=== PATIENT | female | born 1965 | race Caucasian/White ===

== ENCOUNTER → 2023-09-29 10:26 | Outpatient (REF) | payer MEDICARE, OTHER, BC, SELFPAY | LOC: RCS 10:26 | PROVIDERS: ATTENDING PHYSICIAN Internal Medicine | DX: C50.911 Malignant neoplasm of unspecified site of right female breast (principal) | CPT/HCPCS: 93005; 93306; 93356 ==

== ENCOUNTER → 2023-10-04 07:53 | Day surgery (SDC) | payer MEDICARE, OTHER, BC, SELFPAY ==
[2023-10-04 08:42] VITALS: BMI 31.3
== END ==
LOC: CATH 07:53
PROVIDERS: ATTENDING PHYSICIAN Internal Medicine Cardiovascular Disease; FAMILY PHYSICIAN Internal Medicine
DX: I08.1 Rheumatic disorders of both mitral and tricuspid valves (principal); E78.5 Hyperlipidemia, unspecified; Z85.3 Personal history of malignant neoplasm of breast; Z82.49 Family history of ischemic heart disease and other diseases of the circulatory system
CPT/HCPCS: 93312; 93320; 93325; 93005

== ENCOUNTER → 2023-10-11 09:56 | Outpatient (REF) | payer MEDICARE, OTHER, BC, SELFPAY | LOC: RAD 09:56 | PROVIDERS: ATTENDING PHYSICIAN Internal Medicine Cardiovascular Disease; FAMILY PHYSICIAN Internal Medicine | DX: I51.89 Other ill-defined heart diseases (principal) | CPT/HCPCS: 75574; Q9967 ==

== ENCOUNTER → 2023-10-14 09:14 | Outpatient (REF) | payer MEDICARE, OTHER, BC, SELFPAY | LOC: HWRAD 09:14 | PROVIDERS: ATTENDING PHYSICIAN Thoracic Surgery (Cardiothoracic Vascular Surgery); FAMILY PHYSICIAN Internal Medicine | DX: I51.89 Other ill-defined heart diseases (principal); D15.1 Benign neoplasm of heart | CPT/HCPCS: 74174; Q9967 ==

== ENCOUNTER 2023-10-19 05:04 | Inpatient (IN) | payer MEDICARE, BC, SELFPAY ==
[2023-10-17 08:37] VITALS: BMI 30.9
[2023-10-17 09:26] LABS: % Basophils 0.7 % (0-2); % Eosinophils 3.6 % (0-6); % Immature Granulocytes 0.2 % (0-0.5); % Lymphocytes 29.3 % (20.5-51.1); % Monocytes 7.4 % (1.7-9.3); % Neutrophils 58.8 % (42.2-75.2); Absolute Eosinophils 0.2 10^3/uL (0-0.7); Absolute Lymphocytes 1.7 10^3/uL (1.2-3.4); Absolute Monocytes 0.4 10^3/uL (0.1-0.6); Absolute Neutrophils 3.4 10^3/uL (1.4-6.5); Hematocrit 38.1 % (37.0-47.0); Hemoglobin 12.7 g/dL (12.0-16.0); Mean Corp Hgb Conc. 33.3 g/dL (33.0-37.0); Mean Corpuscular Hgb 29.2 pg (27.0-31.0); Mean Corpuscular Volume 87.6 fL (81.0-99.0); Mean Platelet Volume 10.9 fL (7.4-10.4); Nucleated Red Blood Cells % 0 %; Platelet Count 307 10^3/uL (130-400); Red Blood Cell Count 4.35 10^6/uL (4.20-5.40); Red Cell Dist. Width 12.7 % (11.5-14.5); White Blood Cell Count 5.8 10^3/uL (4.8-10.8)
[2023-10-17 09:34] LABS: Urine Albumin Negative (Neg - Trace); Urine Bilirubin Negative (Negative); Urine Character Clear (Clear); Urine Color Straw; Urine Glucose Negative (Negative); Urine Ketone Negative (Negative); Urine Leukocyte Negative (Negative); Urine Nitrite Negative (Negative); Urine Occult Blood Negative (Negative); Urine Specific Gravity 1.005 (<1.030); Urine Urobilinogen Negative (Neg - 1+); Urine pH 6.5 (5.0-9.0)
[2023-10-17 09:44] LABS: APTT 29.7 Sec (23.4-35.0); INR 0.99; PT 12.9 Sec (11.4-14.6)
[2023-10-17 09:50] LABS: Glycohemoglobin (HgbA1c) 5.7 % (4.0-5.6)
[2023-10-17 09:53] LABS: ALT (SGPT) 20 U/L (0-35); AST (SGOT) 22 U/L (14-36); Albumin 4.6 g/dl (3.5-5.0); Alkaline Phosphatase 104 U/L (38-126); Blood Urea Nitrogen 12 mg/dl (7-17); Calcium 9.8 mg/dl (8.4-10.2); Carbon Dioxide 25 mmol/L (22-30); Chloride 102 mmol/L (98-107); Direct Bilirubin 0.3 mg/dl (0.0-0.4); Estimated Creatinine Clearance 103 ml/min; Glucose 99 mg/dl (70-99); Sodium 136 mmol/L (135-145); Total Bilirubin 0.3 mg/dl (0.2-1.3); Total Protein 7.1 g/dl (6.3-8.2); eGFR > 60.00
--- NOTE | 2023-10-17 10:30 | CM ---
Met with Asia Elva in [facility] to review discharge plans. She states prior to admission she resides with her daughter in a two story home with one step to enter. She states she has a full flight of steps to get to bedroom/full bathroom. She states
she has a powder room on the first floor. She states prior to admission she was independent with ambulation and adls. She states she has a single point cane at home. She states she does not have a prescription plan. She states her daughter works
from home and will be available to assist in her care if needed. The discharge plan is to return home with her daughter and a home visit by the Cardiothoracic Transitional Care Nurse when medically stable.
We reviewed pre-op and post-op routines. We reviewed the shower instructions. She has the soap, written instructions and the Cardiothoracic Surgery Educational Booklet. We also reviewed restrictions including driving and lifting restrictions. We
also discussed a home visit by the Cardiothoracic Transitional Care Nurse. She is agreeable to home visit. The plan is for Aortic Valve Tumor resection on Sunday, October 15.
[2023-10-19] VITALS (11 sets, daily range): BP systolic 87–185; BP diastolic 53–96; BMI 30.2
[2023-10-19] MEDS: LOPRESSOR 25 MG PO (05:23)
[2023-10-19] MEDS: BACTROBAN 2% OINTMENT 1 APPLIC NASAL ×2 (05:23→20:06)
[2023-10-19] MEDS: PROTONIX 40 MG PO (05:23)
[2023-10-19] MEDS: MAGNESIUM OXIDE 500 MG PO (05:23)
--- NOTE | 2023-10-19 06:14 | W.CVOR.SURPR ---
CVOR Surgeon Immed Pre Op
-
I have examined this patient prior to performance of the scheduled procedure.
The patient's condition is unchanged from the time of the dictated/written History and
Physical and the patient is able to undergo the scheduled procedure.
RA AV Tumor Resection
Given her bilateral TRAM flaps for breast reconstruction, would ideally like to avoid injury to her mammary arteries or pedicle blood supply,
Will proceed with minimally invasively.
She is aware there is a small chance of causing injury to the [place] aortic valve leaflets causing insufficiency, this would necessitate AVR, if this situation she has opted for a mechanical prosthesis.
[2023-10-19 07:41] LABS: ACT+ - POC 98 Seconds (82-134)
[2023-10-19 07:52] LABS: B.E. - POC -2.8 mmol/L; Glucose - POC 147 mg/dl (65-99); HCO3 - POC 22 mmol/L (21-29); Hematocrit - POC 36 % PCV (37-47); Hemodilution- POC No; Hemoglobin Calculated - POC 12.1; Ionized Calcium - POC 1.16 mmol/L (1.12-1.27); O2 Saturation %Calculated-POC 99.9 5 (92-96); PCO2 - POC 37 mmHg (35-45); PO2 - POC 351 mmHg (80-100); Potassium - POC 3.4 mmol/L (3.6-5.0); Sodium - POC 141 mmol/L (135-145); pH - POC 7.38 (7.35-7.45)
[2023-10-19 08:00] LABS: Urine Albumin Negative (Neg - Trace); Urine Bilirubin Negative (Negative); Urine Character Clear (Clear); Urine Color Yellow; Urine Glucose Negative (Negative); Urine Ketone Negative (Negative); Urine Leukocyte Negative (Negative); Urine Nitrite Negative (Negative); Urine Occult Blood Negative (Negative); Urine Urobilinogen Negative (Neg - 1+); Urine pH 6.5 (5.0-9.0)
--- NOTE | 2023-10-19 08:26 | CM ---
Reviewed chart. Ms. Stevenson is in the operating room today. Prior to admission she resides with her daughter in a two story home with one step to enter. She has a full flight of steps to get to bedroom/full bathroom. She has a powder room ion the
first floor. Prior to admission she was independent with ambulation and adls. She has a single point cane at home. She does not have a prescription plan. Her daughter works from home and she will be available to assist in her care if needed.
Medial work-up in progress. The discharge plan is to return home with her daughter and a home visit by the Cardiothoracic Transitional Care Nurse when medically stable.
[2023-10-19 09:19] LABS: ACT+ - POC 690 Seconds (82-134)
[2023-10-19 09:38] LABS: B.E. - POC 0.7 mmol/L; Glucose - POC 160 mg/dl (65-99); HCO3 - POC 26 mmol/L (21-29); Hematocrit - POC 28 % PCV (37-47); Hemodilution- POC Yes; Hemoglobin Calculated - POC 9.4; Ionized Calcium - POC 1.03 mmol/L (1.12-1.27); O2 Saturation %Calculated-POC 99.9 5 (92-96); PCO2 - POC 41 mmHg (35-45); PO2 - POC 350 mmHg (80-100); Potassium - POC 3.7 mmol/L (3.6-5.0); Sodium - POC 140 mmol/L (135-145)
[2023-10-19 09:46] LABS: ACT+ - POC 1000 Seconds (82-134)
[2023-10-19 10:07] LABS: B.E. - POC -0.7 mmol/L; Glucose - POC 184 mg/dl (65-99); HCO3 - POC 24 mmol/L (21-29); Hematocrit - POC 29 % PCV (37-47); Hemodilution- POC Yes; Ionized Calcium - POC 0.99 mmol/L (1.12-1.27); O2 Saturation %Calculated-POC 99.9 5 (92-96); PCO2 - POC 39 mmHg (35-45); PO2 - POC 293 mmHg (80-100); Potassium - POC 4.8 mmol/L (3.6-5.0); Sodium - POC 140 mmol/L (135-145)
[2023-10-19 10:10] LABS: ACT+ - POC 810 Seconds (82-134)
[2023-10-19 10:57] LABS: B.E. - POC -3.6 mmol/L; Glucose - POC 194 mg/dl (65-99); HCO3 - POC 22 mmol/L (21-29); Hematocrit - POC 33 % PCV (37-47); Hemodilution- POC Yes; Hemoglobin Calculated - POC 11.2; Ionized Calcium - POC 1.02 mmol/L (1.12-1.27); O2 Saturation %Calculated-POC 99.6 5 (92-96); PCO2 - POC 42 mmHg (35-45); PO2 - POC 191 mmHg (80-100); Potassium - POC 4.5 mmol/L (3.6-5.0); Sodium - POC 140 mmol/L (135-145); pH - POC 7.33 (7.35-7.45)
[2023-10-19 11:02] LABS: ACT+ - POC 601 Seconds (82-134)
[2023-10-19 11:31] LABS: ACT+ - POC 104 Seconds (82-134)
[2023-10-19 11:35] LABS: B.E. - POC -2.3 mmol/L; Glucose - POC 183 mg/dl (65-99); HCO3 - POC 23 mmol/L (21-29); Hematocrit - POC 31 % PCV (37-47); Hemodilution- POC Yes; Hemoglobin Calculated - POC 10.5; Ionized Calcium - POC 1.17 mmol/L (1.12-1.27); O2 Saturation %Calculated-POC 95.6 5 (92-96); PCO2 - POC 43 mmHg (35-45); PO2 - POC 84 mmHg (80-100); Potassium - POC 3.7 mmol/L (3.6-5.0); Sodium - POC 141 mmol/L (135-145); pH - POC 7.35 (7.35-7.45)
--- NOTE | 2023-10-19 12:03 | W.PN.CT.SURG ---
Addendum entered and electronically signed by Deep Guerrier MD 10/19/23 13:02:
Of note, the mass measured 1cm x 1cm, with multiple fibrils once placed in saline, resembled a typical papillary fibroelastoma.
Original Note:
CT Surgery Operative Note
-
CARDIAC SURGERY OPERATIVE REPORT
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
Postoperative Diagnosis: Same, multiple Lambl bodies
Procedure(s) Performed:
1. Right common femoral artery cutdown
2. Right lateral minithoracotomy
3. Robotic assisted cardiac surgery, resection of aortic valve tumor and multiple Lambl bodies
4. Transesophageal echocardiography
5. Pulmonary adhesiolysis
Date of Surgery: 10/19/23
Comorbidities:
1. Depression
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
3. Bilateral mastectomies with chemotherapy and reconstruction with TRAM flaps
4. Hyperlipidemia
5. Anxiety
Attending Surgeon: Deep Guerrier MD, MS
Assistants: Camilla Cabral PA-C (present and necessary to pharmacy assistant, retraction, suction, exposure, suture management, and wound closure under my direction) & EDUARDO Castellanos
Anesthesiology: Jurgen Espinoza MD and Kat Sanchez CRNA
Scrub and Circulating RNs: June Dupree RN, Iman Berkowitz RN
Print Line Feeder: Pratik Hollis CCP
Anesthesia: GETA with lung isolation intubation
EBL: per perfusion records
Products: None
CPB Time: 123 minutes
Aortic Cross Clamp Time: 80 minutes
Indication(s) for Procedures: This is a 57-year-old female who underwent a routine transthoracic screening echocardiogram following chemotherapy for breast cancer. She was found to have a mobile mass attached to the right coronary cusp that was
consistent with a papillary fibroelastoma. Due to the elevated stroke risk, multidisciplinary team discussion was conducted. Shared decision-making between her outpatient benzene operator, the patient, and myself was to pursue operative intervention
given the elevated stroke risk. She has a history of breast cancer and underwent bilateral mastectomy with reconstruction in the form of bilateral TRAM flaps. Due to her flaps, we opted to pursue middle invasive surgery to minimize disruption of
the pedicles feeding her flaps.
Aortic Valve Description: Normal-appearing leaflets, mass attached to the node of Arantius toward the [id number]-ghus. Right left coronary ostia within normal anatomic positions. There were some fenestrations toward the right none commissure.
There were multiple Lambl bodies attached to the free margin of the noncoronary cusp as well as the ventricular aspect of the body of the leaflet. These were also resected.
Findings: Left ventricular ejection fraction preoperatively was normal at approximate 55% with no regional wall motion abnormalities. Following surgery she was slightly hyperdynamic with an EF of approximately 60 to 65% with no new regional wall
motion abnormalities. After performing the aortotomy using the robot, multiple stay sutures were placed. The mass was identified to be attached to the right coronary cusp. The mass was gently teased away in order to expose the insertion point
which was essentially on the node of Arantius, wraps slightly towards the noncoronary cusp side. Using sharp scissors, this was cut the mass was extracted from the operative field and placed into a specimen cup. Inspection of all leaflets found
multiple Lambl bodies attached to the right coronary cusp as well as the noncoronary cusp. Lambl bodies were on the free margin as well as on the ventricular aspect towards the body of the leaflet. These were also resected with a combination of
blunt stripping as well as sharp scissors. The valve was tested for competency and appeared to be appropriate. The aortotomy was closed in 2 layers using 4-0 Prolene and the heart was de-aired accordingly. Due to her normal ventricular function
and no subvalvular or annular work, I did not place any pacing wires. Upon removal of the cross-clamp there appears to be a good root pressure indicating valve competency. Transesophageal echocardiogram was conducted in order to verify valve
competency. The aortic valve was competent with normal leaflet excursion without the mass present. No inotropes were used, no blood products were given, no pacing was required.
Specimen(s): Aortic valve leaflet tumor, appearance was consistent with a papillary fibroelastoma.
Description of Procedure: The patient was taken to the operating room. Their identity and procedure to be performed were verified and they were positioned supine with the right side bumped up on the operating table. Induction via general anesthesia
with endotracheal intubation was performed and central venous access and arterial monitoring were inserted. A preoperative transesophageal echocardiogram was performed to assess cardiac function and valvular function. The patient was then prepped
and draped from chin to feet in a sterile fashion. A preoperative time-out was performed with all members of the team present. Using ultrasound, the right common femoral vessels were identified and a small 3 cm incision was made above the level of
the bifurcation. Pursestring sutures were placed along the femoral vein and common femoral artery. I then moved towards the chest and identified the fourth intercostal space. A 5 cm incision was made and the chest was entered with the right lung
deflated under single lung ventilation. There was some pulmonary adhesions which were lysed using electrocautery. Full heparinization was given (a total of 40,000 units). Using open Seldinger technique with transesophageal echocardiographic
guidance, the femoral vein was cannulated first with a wire which was verified to be in the SVC. A 25 [place] peripheral venous cannula was then inserted under direct vision in place so the tip of the cannula was in the SVC. Next using a similar
method, the common femoral artery was accessed with a wire verified to be in the abdominal aorta. Serial dilations first using a small and then 14 Latvian dilator was performed followed by insertion of a 15 [place]ian arterial cannula. The cannula was
de-aired and mated wet to wet. The arterial cannula line had an appropriate bounce and correlating pressures with test dosing. The ACT was confirmed to be over 400 and retrograde autologous priming was performed before commencing cardiopulmonary
bypass. The robotic instruments were docked using three 8 mm ports, one through the thoracotomy incision and then one 8 mm port on either side of the thoracotomy. Once the heart was decompressed and beautifully on cardiopulmonary bypass, the lungs
were turned off and the pericardium was opened with electrocautery. 2 pericardial stay sutures were placed 1 inferiorly 1 superiorly in order to create a pericardial table. The aorta was then from the right pulmonary artery using
electrocautery. A pursestring suture was placed on the ascending aorta and antegrade root vent was then inserted and secured. A Esmer clamp was then inserted under direct vision and positioned across the aorta to ensure not to include the left
atrial appendage or pulmonary artery. A total of 1L initial dose of antegrade Del-Nido cardioplegia solution was given and planned for re-dosing every 75 minutes as necessary. There was rapid electro-mechanical arrest of the heart at 200 cc of
cardioplegia. We systemically cooled to 34 degrees centigrade.
Carbon dioxide was used to flood the field via one of the ports at a very low flow. We manually identified the location of the right coronary take off. An aortotomy was made approximately 2cm above the sinotubular junction using robotic scissors.
The location of both left and right coronary vessels were visualized in the root. 2 x 4-0 pledgeted Prolene's were then placed in order to facilitate exposure of the aortic root. Next using scissors, the fibroelastoma was resected from the right
coronary cusp with a combination of blunt and sharp dissection. This was handed off and placed into a specimen cup outside the field. Aortic valve leaflets were then inspected again and found to have multiple Lambl bodies as described above, these
were also resected. The root and left ventricular outflow tract were thoroughly irrigated to remove any debris and the valve was tested for competency. The aortotomy was approximated with 4-0 prolene in two layers. De-airing maneuvers were
performed. The patient was placed in a Trendelenburg position and flows on bypass were lowered. The aortic cross clamp was removed and flows were slowly brought back up. The aortotomy appeared hemostatic. Transesophageal echocardiography revealed
no new aortic valve insufficiency and normal excursion the leaflets without any masses or abnormalities appearing on the leaflets. Once de-airing was satisfactory, the left ventricular vent was removed. After verifying acceptable parameters, we
initiated weaning from cardiopulmonary bypass. Once we were off cardiopulmonary bypass, the femoral cannulas were then clamped, the arterial line was then transected and then placed onto the femoral venous cannula. This was served as our method of
getting back volume. A test dose of protamine was administered and the patient was monitored for any adverse reaction before resuming protamine. Once half of the protamine dose was delivered, pump suckers were turned off. The arterial cannula was
removed and pursestrings were tied down. The aortotomy suture line was inspected and hemostasis was confirmed. Mediastinal hemostasis was obtained. One 24Fr Ady drain was placed within the pericardium across the transverse sinus with some hanging
out in the chest noted drain both cavities. Fascia was approximated with #1 vicryl suture. Additional local analgesia was injected into the intercostal spaces and in the subdermal layer. The subcutaneous, dermis and epidermis were closed in layers
in a running fashion of all incisions. The skin wound was cleansed and dressed.
All instrument, sponge, and needle counts were confirmed to be correct x 2 at the end of the operation. The patient was transferred to the cardiac intensive care unit in critical but stable condition.
I, Dr. Deep Guerrier, was present, scrubbed for, and performed all critical elements of this procedure.
Deep Guerrier MD, MS
Cardiothoracic Surgeon
[facility]
This operative dictation was created using the [employer] dictation system. Please excuse any grammatical, typographical, or 'sound alike' errors
--- NOTE | 2023-10-19 12:23 | W.PN.UPDATE ---
Update Note
Progress Note Update
IV fluids: 2049
U.O.:� 300
UF:� NONE
Blood:� None
Wires:� none
Inotropes:� None
Pressors:� Levophed
Sedatives:� precedex
�
NEURO: sedated on precedex, pupils +4mm B/L
RESP: #8OT @22cm> 14/500/40/5; Lungs clear B/L. 1 mediastinal (8ml) chest tubes to -20cm suction. Sanguineous drainage
CV: RRR +S1, S2, no S3, no�rub, no murmur. Dermabond to right chest wall ) RIJ w/slick cath
ABD: round, soft, no BS
EXT: no edema, +2/4 DP pulses B/L, no femoral bruit, left radial A-line intact
: River with clear yellow urine
�
A/P: POD #0 s/p robotic assisted aortic valve tumor resection
RODY: EF�nml
- wean and extubate
- will start ASA today
- Monitor uop and CT output
- f/u post-op labs
- cards consulted
�
# acute surgical blood loss anemia-expected
- trend CBC
- will start iron
#Depression
- continue Effexor when tolerating PO
�
# Hyperglycemia (A1C 5.7)
- insulin infusion x 24h
�
# Hyperlipidemia
- resume�statin when tolerating PO
[2023-10-19 12:31] LABS: Glucose - Point of Care 163 mg/dl (70-99)
[2023-10-19 12:43] LABS: Hematocrit 31.1 % (37.0-47.0); Hemoglobin 10.5 g/dL (12.0-16.0); Platelet Count 211 10^3/uL (130-400)
[2023-10-19 12:48] LABS: INR 1.35; PT 16.8 Sec (11.4-14.6)
[2023-10-19 12:49] LABS: APTT 25.4 Sec (23.4-35.0); B.E. -2.3 mmol/L; HCO3 24.2 mmol/L (21-28); Ionized Calcium 1.22 mMOL/L (1.15-1.33); O2 Saturation % 99.5 % (94-98); PCO2 48 mmHg (32-35); PO2 144 mmHg (83-108); Potassium 3.7 mMOL/L (3.5-5.1); Sodium 142 mMOL/L (136-145); pH 7.31 (7.35-7.45)
[2023-10-19] MEDS: NEURONTIN PO ×2 (12:52→15:04)
[2023-10-19] MEDS: EFFEXOR XR PO (12:52)
[2023-10-19] MEDS: EFFEXOR PO (12:52)
[2023-10-19] MEDS: NSS 500 IV (12:53)
[2023-10-19 13:02] LABS: Glucose - Point of Care 172 mg/dl (70-99)
[2023-10-19 13:05] LABS: Blood Urea Nitrogen 12 mg/dl (7-17); Estimated Creatinine Clearance 87 ml/min; Glucose 156 mg/dl (70-99); Magnesium 2.8 mg/dl (1.6-2.3)
[2023-10-19] MEDS: TYLENOL PO (13:16)
[2023-10-19] MEDS: ANCEF 10 IV ×2 (13:16)
--- NOTE | 2023-10-19 13:26 | PTCARENOTE ---
Patient received from CVOR s/p AV mass resection. SB via cm, SaO2 98% on ventilator, titrating FiO2 as able. RIJ Cordis, L radial arterial lines present. Mediastinal chest tube placed to -20cm suction, no air leak noted. River catheter to gravity.
All procedural sites stable. Labs drawn, EKG performed, pcxr obtained. Dr. Guerrier to bedside, updated to status. See work list for full assessment, interventions performed, and intravenous infusion rates and titrations.
--- NOTE | 2023-10-19 13:32 | W.PN.CARDCBS ---
Addendum entered and electronically signed by Dwight Choi MD 10/19/23 15:27:
I saw and examined the patient.
The MICROWAVE REMOTE SENSING SCIENTIST or PA's note was reviewed and I agree with the note.
Comment: General: Sedate but arousable
Neck: Supple, no JVD, HJR, carotids +2 B/L, no bruits bilaterally.
Heart: Non displaced PMI, RRR, no murmurs, No S3, S4, no rubs.
Lungs: Scattered rhonchi
Sternal dressings noted
Extremities: No clubbing, cyanosis or edema bilaterally.
Neuro: Sedated but arousable
She seems status post fibroblastoma on aortic valve. She is cardiovascular stable no pressors. She remains intubated and present. Discussed with nursing. Stable cardiology status
Original Note:
Today's Communication / Plan
-
continue post op care
Impression / Plan
-
Primary Painter Bottom: Dr. Mojica
Assessment:
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
History of breast cancer status post chemotherapy, bilateral mastectomy with reconstruction 2015
Hyperlipidemia
Depression/anxiety
Post op anemia
ECHO 09/29/23: EF 50%, GLS 17.4%, mild MR, trace AR, echodensity on aortic valve, mild NH
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
Plan:
-Patient recently diagnosed with aortic valve mass by echo 09/29/2023. Now status post robotic assisted resection of aortic valve tumor and multiple Lambl bodies via right mini thoracotomy 10/19/2023. Appearance of mass felt to be consistent with
papillary fibroblastoma, await pathology
-Remains intubated, sedated
-On levo at 1, wean as able
-Hemoglobin 10.5, follow
-In sinus rhythm/sinus haile on review of telemetry and post op EKG
-Continue postoperative care
-Discussed with nursing
Progress Note - Painter Bottom
Subjective
Date of Service: October 19, 2023
intubated, sedated
Objective
Labs:
10/19/23 12:31
Labs
Hgb 10.5 g/dL (12.0-16.0) L 10/19/23 12:31
Hct 31.1 % (37.0-47.0) L 10/19/23 12:31
Plt Count 211 10^3/uL (130-400) D 10/19/23 12:31
PT 16.8 Sec (11.4-14.6) H 10/19/23 12:31
INR 1.35 10/19/23 12:31
APTT 25.4 Sec (23.4-35.0) 10/19/23 12:31
Sodium 136 mmol/L (135-145) 10/17/23 08:56
Potassium 4.0 mmol/L (3.5-5.1) 10/17/23 08:56
BUN 12 mg/dl (7-17) 10/19/23 12:31
Creatinine 0.7 mg/dL (0.6-1.0) 10/19/23 12:31
Glucose 156 mg/dl (70-99) H 10/19/23 12:31
Vital Signs and I&O:
Vital Signs
Temp Pulse Resp BP Pulse Ox
97.5 F 56 12 173/94 99
10/19/23 13:00 10/19/23 13:06 10/19/23 13:00 10/19/23 05:23 10/19/23 13:15
Vital Signs
Temp Pulse Resp BP Pulse Ox
97.5 F 56 12 173/94 99
10/19/23 13:00 10/19/23 13:06 10/19/23 13:00 10/19/23 05:23 10/19/23 13:15
Intake & Output
10/17/23 10/18/23 10/19/23 10/20/23
07:59 07:59 07:59 07:59
Intake Total 41.3 / 41.3
Output Total 95 / 95
Balance -53.7 / -53.7
Physical Exam
Physical Exam
GEN: No distress, intubated
HEENT: supple, mmm
LUNGS: CTA B/L, no wheezes/rales
CV: Reg, S1/S2, no murmur
ABD: soft, BS+, NT/ND
EXT: No cyanosis, clubbing, edema
NEURO: sedated
SKIN: Warm, pink, dry. No rash. R mini thoracotomy sites c/d/i
--- NOTE | 2023-10-19 13:52 | CON.INTV ---
Consultation
Consultation Request
Date/Time Consultation Requested: 10/18
Date/Time Consultation Performed: 10/18
Reason for Consultation: Critical care
Medical History
-
History of Present Illness:
History obtained from the chart, reviewing outpatient records this patient is currently intubated and sedated. Patient is a 57-year-old female with history of breast cancer, found to have valvular lesion worrisome for papillary fibroelastoma.
Patient underwent CT surgery evaluation, now status post right common femoral artery cutdown, right lateral minithoracotomy, robot-assisted aortic valve tumor resection. Clamp time 80 minutes. Cardiopulmonary bypass time 123 minutes. Patient
required low-dose norepinephrine postprocedure. We are asked to help from critical care standpoint
.
PMH: History of breast cancer with bilateral mastectomy with reconstruction, hypercholesterolemia, depression. History of right and left knee replacement, ganglion cyst removal, lymph node removal, port in the past.
Past Medical History
Past Medical History: None (See above)
Past Surgical History: None (See above)
Social History
Tobacco: Non-smoker
Alcohol: None
Drug: None
Personal: Single
Living: With Family (Lives with daughter)
Employment: Employed (environmental attorney)
Family History
Family History: Other (Father from [place] at age 51. Mother alive with breast cancer. Sister with breast cancer. 1 daughter healthy. 1 brother healthy)
Allergies / Home Medications
Allergies
Allergy/AdvReac Type Severity Reaction Status Date / Time
adhesive tape Allergy Rash Verified 10/14/23 14:10
Penicillins Allergy Rash Verified 10/14/23 14:10
Home Medications
�Medication �Instructions �Recorded �Confirmed �Last Taken �Type
simvastatin 40 mg tablet 40 mg PO DAILY 10/04/23 10/19/23 10/18/23 05:30 History
venlafaxine 37.5 mg tablet 37.5 mg PO DAILY 10/04/23 10/19/23 10/18/23 09:00 History
aspirin 81 mg tablet 81 mg PO DAILY 10/14/23 10/19/23 10/18/23 05:30 History
dextroamphetamine-amphetamine 20 20 mg PO BID 10/14/23 10/19/23 10/18/23 05:30 History
mg tablet (Adderall)
venlafaxine 150 mg tablet,extended 150 mg PO DAILY 10/14/23 10/19/23 10/16/23 09:00 History
release 24 hr
Review of Systems
-
Unable to Obtain full review of systems at this time due to: Patient Intubation
All other systems: Negative unless noted
Vitals / Labs / Diagnostic Testing
Vital Signs
Temp Pulse Resp BP Pulse Ox
97.5 F 56 12 173/94 99
10/19/23 13:00 10/19/23 13:06 10/19/23 13:00 10/19/23 05:23 10/19/23 13:15
Lab Data
10/19/23 12:31
Laboratory Results
10/19/23
12:31
PT 16.8 H
INR 1.35
APTT 25.4
pH 7.31 L
pCO2 48 H
pO2 144 H
HCO3 24.2
O2 Delivery Level Not Reportable
Microbiology
10/17/23 08:56 Nose MRSA Screen - Final
No Methicillin Resistant Staphylococcus aureus isolated.
Diagnostic Testing:
Physical Exam
-
HEENT: Normocephalic and Other (Right IJ, left upper extremity A-line, chest tube)
Cardiovascular: S1/S2, Regular Rhythm, Murmur (n), Rub (n) and Peripheral Edema (n)
Respiratory: Wheeze (n), Rales (n), Rhonchi (n) and Non-Labored Respirations
GI: Soft, Non Distended and Non Tender
Neurology: Other (Lethargic, sedated on ventilator)
Skin: Good Color
General: Comfortable
Assessment
-
57-year-old female with history of breast cancer status postchemotherapy, bilateral mastectomy with reconstruction, underwent echocardiogram with echodensity noted in aortic valve. Further workup suggested papillary fibroelastoma. Patient
underwent removal via robotic right mini thoracotomy, 10/19/2023. We are asked to help from critical care standpoint
S/p Removal of aortic valvular lesion, presumed to be papillary fibroelastoma, 10/19/2023
Robotic assisted resection
Right minithoracotomy
Postoperative anemia
Incomplete right bundle branch block chronic
Condition present prior to admission
History of breast cancer
Status postchemotherapy, bilateral mastectomy with reconstruction 2015
Hyperlipidemia
Family history of breast cancer (sister)
Plan/recommendations
At this time, patient appears to be comfortable, on volume-cycled ventilation. Airway pressures adequate
Chest exam is clear
Chest x-ray unremarkable
EKG with incomplete right bundle branch block
Moving forward
Continue with management per cardiology
Follow blood sugars
Wean off pressors
Wean ventilator per CT surgery protocol
Adequate oxygenation/ventilation
Anticipate extubation later today
Patient on amiodarone therapy, beta-herb therapy
Chest tube output minimal
Follow hemoglobin. Transfuse per CT surgery protocol
Sequential teds in place
Reviewed with critical care nursing
Will follow
TCCT 31 min
[2023-10-19 14:05] LABS: Glucose - Point of Care 141 mg/dl (70-99)
[2023-10-19] MEDS: OFIRMEV 100 IV (14:08)
[2023-10-19] MEDS: KCL 50 IV ×2 (14:08→15:10)
[2023-10-19 14:13] LABS: B.E. -0.3 mmol/L; O2 Saturation % 99.2 % (94-98); PCO2 37 mmHg (32-35); PO2 124 mmHg (83-108); pH 7.42 (7.35-7.45)
[2023-10-19 15:01] LABS: Glucose - Point of Care 99 mg/dl (70-99)
[2023-10-19] MEDS: PACERONE PO (15:04)
[2023-10-19 15:10] LABS: B.E. -0.2 mmol/L; HCO3 23.9 mmol/L (21-28); O2 Saturation % 99.6 % (94-98); PCO2 36 mmHg (32-35); PO2 178 mmHg (83-108); pH 7.43 (7.35-7.45)
--- NOTE | 2023-10-19 15:44 | PTCARENOTE ---
CPAP wean initiated. Patient displayed good TV - ABG obtained. Results conveyed to TRISTEN [place], advised nursing extubate patient. Patient extubated to 6lnc w/out incident, SaO2 @ 98%.
[2023-10-19 16:01] LABS: Glucose - Point of Care 104 mg/dl (70-99)
[2023-10-19 16:42] LABS: Hematocrit 31.2 % (37.0-47.0); Hemoglobin 10.5 g/dL (12.0-16.0); Platelet Count 179 10^3/uL (130-400)
[2023-10-19] MEDS: LOW STRENGTH ASPIRIN 81 MG PO (16:47)
[2023-10-19] MEDS: FLEXERIL 5 MG PO (16:58)
[2023-10-19 17:05] LABS: Glucose - Point of Care 92 mg/dl (70-99)
--- NOTE | 2023-10-19 18:00 | PTCARENOTE ---
Assumed care of pt from juan david RN. Walking rounds completed. Pt AAOx3 and sleepy. No c/o pain at this time. BOYD. Pt SR to sinus haile on the monitor. HR 50-60s. CVP 7-teens. BP 110's-120's/60s. Nitro infusing per protocol. Palpable pulses. No
edema noted. Pt on 3 L NC. POX 100%. Lung sounds diminished at the base. Deep breathing and IS encouraged. Med CTx1 to -20 suction, no airleak/tidaling/crepitus noted, and output appropriate. River catheter intact. Pt voiding yellow urine. Abdomen
soft/nontender. +BS. No c/o nausea. Pt tolerated sips of water and ice chips. All surgical sites stable. Right IJ cordis w/ slick and left radial a-line CDI. All lines leveled/zeroed/flushed. Call bazzi within reach of pt.
[2023-10-19] MEDS: ANCEF 5 IV (18:07)
[2023-10-19 19:11] LABS: Glucose - Point of Care 130 mg/dl (70-99)
[2023-10-19] MEDS: SENOKOT-S 1 TABLET PO (20:06)
[2023-10-19] MEDS: ROXICODONE 5 MG PO (20:11)
[2023-10-19] MEDS: DILAUDID 0.25 MG IV (20:29)
[2023-10-19 21:13] LABS: Glucose - Point of Care 108 mg/dl (70-99)
[2023-10-19] MEDS: PACERONE 200 MG PO (22:12)
[2023-10-19] MEDS: NEURONTIN 200 MG PO (22:12)
[2023-10-19] MEDS: TYLENOL 1000 MG PO (22:12)
--- NOTE | 2023-10-19 22:14 | PTCARENOTE ---
Pt a-line and cuff pressures not lining up. Cuff SBP's 120s and a-line SBP's 140s-150s. Per CTPA - go by cuff pressures.
[2023-10-19 23:10] LABS: Glucose - Point of Care 89 mg/dl (70-99)
[2023-10-20] VITALS (28 sets, daily range): BP systolic 87–151; BP diastolic 50–104; PULSE 71; O2SAT 97–98; BMI 31.2
[2023-10-20] MEDS: DILAUDID 0.25 MG IV (00:03)
--- NOTE | 2023-10-20 00:26 | PTCARENOTE ---
Pt reassessed. Pt SR on monitor. HR 60s. BP stable. A-line and cuff not BP's not matching - per CTPA going by cuff pressure. Pt on 2 L NC. POX 98-100%. CT assessment unchanged from previous. CVP 5-10. Right IJ cordis w/ slick and Left radial a-line
maintained. All lines leveled/zeroed/flushed. All surgical sites stable. Pt c/o pain - see AUG. Glycemic protocol followed. Call bazzi within reach.
[2023-10-20 01:14] LABS: Glucose - Point of Care 101 mg/dl (70-99)
[2023-10-20] MEDS: ROXICODONE 5 MG PO (01:46)
[2023-10-20] MEDS: ANCEF 5 IV ×2 (01:46→10:11)
[2023-10-20 03:30] LABS: Glucose - Point of Care 125 mg/dl (70-99)
[2023-10-20 03:46] LABS: Hematocrit 30.4 % (37.0-47.0); Hemoglobin 10.2 g/dL (12.0-16.0); Mean Corp Hgb Conc. 33.6 g/dL (33.0-37.0); Mean Corpuscular Hgb 29.8 pg (27.0-31.0); Mean Corpuscular Volume 88.9 fL (81.0-99.0); Mean Platelet Volume 10.8 fL (7.4-10.4); Platelet Count 201 10^3/uL (130-400); Red Blood Cell Count 3.42 10^6/uL (4.20-5.40); White Blood Cell Count 17.7 10^3/uL (4.8-10.8)
--- NOTE | 2023-10-20 04:00 | PTCARENOTE ---
Pt reassessed. Pt SR on monitor. HR 70s. BP slightly elevated. Nitro started per CTPA. RA. POX 97%. CT assessment unchanged. [place] and a-line dc'd per order. Call bazzi within reach.
[2023-10-20 04:12] LABS: Blood Urea Nitrogen 13 mg/dl (7-17); Calcium 8.9 mg/dl (8.4-10.2); Carbon Dioxide 24 mmol/L (22-30); Chloride 105 mmol/L (98-107); Estimated Creatinine Clearance 102 ml/min; Glucose 113 mg/dl (70-99); Magnesium 2.5 mg/dl (1.6-2.3); Potassium 4.1 mmol/L (3.5-5.1); Sodium 134 mmol/L (135-145); eGFR > 60.00
[2023-10-20 05:13] LABS: Glucose - Point of Care 92 mg/dl (70-99)
[2023-10-20] MEDS: TYLENOL 1000 MG PO ×3 (05:45→20:40)
[2023-10-20] MEDS: LOPRESSOR 12.5 MG PO ×2 (05:46→20:40)
--- NOTE | 2023-10-20 06:03 | W.PN.CT ---
Addendum entered and electronically signed by KODAK Sterling 10/21/23 14:25:
CDI QUERY RESULT
Na+ 130>hyponatremia
Original Note:
Today's Communication / Plan
-
-pod #1
-no issues overnight
-drips: on insulin. Nitro is off
-CT output: med 70/125 in 12/24 hrs
-gave Lopressor early for HTN
-d/c insulin
-d/c [place]
-d/c a-line
-current meds (ASA, Lipitor, Lopressor, Amio, Protonix, Effexor, Neurontin, Adderall, iv iron)
-encourage IS, OOB
Assessment / Plan
-
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 Guerrier on 10/19/23, pod #1
-LVEF preop was normal at approximate 55% with no regional wma. Following surgery, she was slightly hyperdynamic with an EF of approximately 60 to 65% with no new regional wall motion abnormalities.
- Depression
- Bilateral mastectomies with chemotherapy and reconstruction with TRAM flaps
- Hyperlipidemia
- Anxiety
- Lap BSO
- b/l TKR
- Acute postop blood loss anemia - stable without transfusion
- Acute postop atelectasis
Discussed patient care with: Nursing and Care Team
Subjective
-
Date of Service: October 19, 2023
Objective Data
-
Lab Results
10/19/23 16:33
10/19/23 12:31
PT 16.8 Sec (11.4-14.6) H 10/19/23 12:31
INR 1.35 10/19/23 12:31
APTT 25.4 Sec (23.4-35.0) 10/19/23 12:31
Vital Signs
Vital Signs
Temp Pulse Resp BP Pulse Ox
98.5 F 67 14 142/82 100
10/19/23 23:00 10/19/23 23:00 10/19/23 23:00 10/19/23 23:00 10/19/23 23:[address]
CT Intake/Output/Weight
10/19/23 10/19/23 10/20/23
06:59 18:59 06:59
Intake Total 168.4 / 278.2 109.8 / 278.2
Output Total 620 / 910 290 / 910
Balance -451.6 / -631.8 -180.2 / -631.8
SaO2: 100
Physical Exam
-
General: Awake and AOx3
Cardiovascular: Regular rate & rhythm, No Murmurs and Rub
Respiratory: Decreased Breath Sounds
Sternum: Stable
Incision: Clean, Dry and Intact
Extremities: No Edema (2+ DP b/l)
Data Reviewed
-
Lab Results: Results Reviewed
Medications: Active Meds Reviewed
Chest X-Ray: Report Reviewed and Image Reviewed
ECG: Report Reviewed and Image Reviewed
--- NOTE | 2023-10-20 06:54 | W.PN.INTV ---
Today's Communication / Plan
Recommendations
Pain control, incentive spirometry
Follow blood sugars
Insulin drip being weaned off
Out of bed to chair
Eventual follow-up echocardiogram
Once transferred to telemetry, we will sign off. Please call with questions
Assessment
-
57-year-old female with history of breast cancer status postchemotherapy, bilateral mastectomy with reconstruction, underwent echocardiogram with echodensity noted in aortic valve. Further workup suggested papillary fibroelastoma. Patient
underwent removal via robotic right mini thoracotomy, 10/19/2023. We are asked to help from critical care standpoint
S/p Removal of aortic valvular lesion, presumed to be papillary fibroelastoma, 10/19/2023
Robotic assisted resection
Right minithoracotomy
Postoperative anemia
Incomplete right bundle branch block chronic
Condition present prior to admission
History of breast cancer
Status postchemotherapy, bilateral mastectomy with reconstruction 2015
Hyperlipidemia
Family history of breast cancer (sister)
Plan/recommendations
At this time, patient appears to be comfortable, sitting in chair, oxygenation adequate
Chest exam is clear, mild splinting noted
Chest x-ray unremarkable
EKG with incomplete right bundle branch block
Moving forward
Continue with management per cardiology
Follow blood sugars
Insulin drip continues, being weaned
Patient on amiodarone therapy, beta-herb therapy
Eventual repeat echocardiogram per CT surgery
Chest tube output minimal
Follow hemoglobin. Transfuse per CT surgery protocol
Sequential teds in place
Reviewed with critical care nursing
Once transferred to telemetry, we will sign off. Please call with questions
Subjective Dataa
Subjective Data
Date of Service:
Date of Service: October 20, 2023
Subjective:
Patient extubated without difficulty. She has a mild productive cough. No hemoptysis. Pain is controlled. Denies nausea. Sitting in chair
Objective Data
Data Reviewed
Vital Signs / I&O / Oxygen:
Vital Signs
Temp Pulse Resp BP Pulse Ox
98.5 F 79 14 139/85 96
10/20/23 05:00 10/20/23 06:15 10/20/23 06:00 10/20/23 06:00 10/20/23 06:00
Intake and Output
10/18/23 10/19/23 10/20/23
06:59 06:59 06:59
Intake Total 410.4 / 410.4
Output Total 1400 / 1400
Balance -989.6 / -989.6
SaO2 [CPAP] 100
SaO2 [SIMV] 99
SaO2 96
Nasal Cannula flow liters per 2
minute
Physical Exam
General: Comfortable and Other (Right IJ, chest tube)
HEENT: Normocephalic and Anicteric
Cardiovascular: S1-S2, Regular Rhythm, Murmur (n) and Rub (n)
Respiratory: Wheeze (n), Crackles (n) and Rhonchi (n)
GI: Soft, Non Distended and Non Tender
Neurology: Awake, Alert and No Motor Deficits
Skin: Cyanosis (n), Jaundice (n) and Rash (n)
Labs/Micro/Reports
Lab Data
10/20/23 03:29
10/20/23 03:29
Laboratory Results
10/19/23 10/19/23 10/19/23
12:31 14:01 14:57
PT 16.8 H
INR 1.35
APTT 25.4
pH 7.31 L 7.42 7.43
pCO2 48 H 37 H 36 H
pO2 144 H 124 H 178 H
HCO3 24.2 24.0 23.9
O2 Delivery Level Not Reportable Not Reportable
Microbiology
10/17/23 08:56 Nose MRSA Screen - Final
No Methicillin Resistant Staphylococcus aureus isolated.
[2023-10-20 07:17] LABS: Glucose - Point of Care 125 mg/dl (70-99)
--- NOTE | 2023-10-20 07:47 | W.PN.CARDCBS ---
Addendum entered and electronically signed by Keaton Mojica MD 10/20/23 11:08:
I saw and examined the patient.
The Maintenance Mechanic 2Nd Shift's note was reviewed and I agree with the note.
Comment:
GEN: No distress, awake, Ox3
HEENT: supple, anicteric, mmm
LUNGS: CTA, no wheezes/rales
CV: Reg, S1/S2, 1/6 syst LSB, no gallop
ABD: soft, BS+, NT/ND
EXT: No edema
NEURO: Gross non-focal
SKIN: No rash
Plan:
Doing great post aortic valve mass resection.
Continue metoprolol and amiodarone.
Remains in sinus rhythm.
Original Note:
Today's Communication / Plan
-
continue post op care
follow BPs
Impression / Plan
-
Primary Jack Winder: Dr. Mojica
Assessment:
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
History of breast cancer status post chemotherapy, bilateral mastectomy with reconstruction 2015
Hyperlipidemia
Depression/anxiety
Post op anemia
ECHO 09/29/23: EF 50%, GLS 17.4%, mild MR, trace AR, echodensity on aortic valve, mild WI
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
Plan:
-Patient recently diagnosed with aortic valve mass by echo 09/29/2023. Now status post robotic assisted resection of aortic valve tumor and multiple Lambl bodies via right mini thoracotomy 10/19/2023. Appearance of mass felt to be consistent with
papillary fibroblastoma, await pathology
-off pressors
-continue postop care, pain mgmt
-in SR on amio/lopressor
-follow BPs, was not on antiHTN meds prior to admission
-hgb stable at 10.2
-OOB/IS as able
-Discussed with nursing
Progress Note - Jack Winder
Subjective
Date of Service: October 20, 2023
reports discomfort with taking a deep breath in
Objective
Labs:
10/20/23 03:29
10/20/23 03:29
Labs
Hgb 10.2 g/dL (12.0-16.0) L 10/20/23 03:29
Hct 30.4 % (37.0-47.0) L 10/20/23 03:29
Plt Count 201 10^3/uL (130-400) 10/20/23 03:29
PT 16.8 Sec (11.4-14.6) H 10/19/23 12:31
INR 1.35 10/19/23 12:31
APTT 25.4 Sec (23.4-35.0) 10/19/23 12:31
Sodium 134 mmol/L (135-145) L 10/20/23 03:29
Potassium 4.1 mmol/L (3.5-5.1) 10/20/23 03:29
BUN 13 mg/dl (7-17) 10/20/23 03:29
Creatinine 0.5 mg/dL (0.6-1.0) L 10/20/23 03:29
Glucose 113 mg/dl (70-99) H 10/20/23 03:29
Vital Signs and I&O:
Vital Signs
Temp Pulse Resp BP Pulse Ox
98.5 F 77 14 146/80 96
10/20/23 05:00 10/20/23 07:00 10/20/23 06:00 10/20/23 07:00 10/20/23 07:00
Vital Signs
Temp Pulse Resp BP Pulse Ox
98.5 F 77 14 146/80 96
10/20/23 05:00 10/20/23 07:00 10/20/23 06:00 10/20/23 07:00 10/20/23 07:00
Intake & Output
10/17/23 10/18/23 10/19/23 10/20/23
07:59 07:59 07:59 07:59
Intake Total 410.4 / 410.4
Output Total 1400 / 1400
Balance -989.6 / -989.6
Physical Exam
Physical Exam
GEN: No distress, awake, alert, oriented x3. sitting in chair
HEENT: supple, anicteric, mmm, eomi
LUNGS: CTA B/L, no wheezes/rales
CV: Reg, S1/S2, 1/6 syst LSB
ABD: soft, BS+, NT/ND
EXT: No cyanosis, clubbing, edema
NEURO: Gross non-focal
SKIN: Warm, pink, dry. No rash. CT in place
[2023-10-20] MEDS: PROTONIX 40 MG PO (07:51)
[2023-10-20] MEDS: LOW STRENGTH ASPIRIN 81 MG PO (07:51)
[2023-10-20] MEDS: EFFEXOR XR 150 MG PO (07:51)
[2023-10-20] MEDS: LIPITOR 20 MG PO (07:51)
[2023-10-20] MEDS: EFFEXOR 37.5 MG PO (07:51)
[2023-10-20] MEDS: SENOKOT-S 1 TABLET PO ×2 (07:52→20:34)
[2023-10-20] MEDS: TORADOL 15 MG IV ×2 (07:52→18:05)
[2023-10-20] MEDS: NEURONTIN 200 MG PO ×3 (07:52→20:40)
[2023-10-20] MEDS: ADDERALL 20 MG PO ×2 (07:52→12:15)
[2023-10-20] MEDS: PACERONE 200 MG PO ×3 (07:52→20:41)
[2023-10-20] MEDS: BACTROBAN 2% OINTMENT 1 APPLIC NASAL ×2 (07:55→20:41)
[2023-10-20 08:12] LABS: Glucose - Point of Care 108 mg/dl (70-99)
--- NOTE | 2023-10-20 08:20 | PTCARENOTE ---
Assumed care of patient from slot shift manager RN, AAO x 3 sitting up in the chair dozing intermittently. SR on monitor. Room air 97%, IS to 750, needs encouragement. Chest tube x 1 to -20 cm suction. No air leak or crepitus noted. Abdomen soft,
round, with hypoactive bowel sounds. Surgical sites well approximated with surgical adhesive present. Trace pedal edema appreciated. Pulses palpable. Insulin infusing per glycemic protocol. Plan for day discussed.
[2023-10-20] MEDS: MAGNESIUM OXIDE PO (09:34)
--- NOTE | 2023-10-20 09:44 | W.DCSUMMARY ---
Discharge Summary
Discharge Data
Date of Admission: 10/19/23
Date of Discharge: 10/21/23
-
Pending Results: No
Hospital Course
Primary care physician: Francisco Celeste
Outpatient tire molder: Keaton Mojica
Inpatient consultants: [facility]
Procedures:
1. Robotic assisted cardiac surgery, resection of aortic valve fibroelastoma and multiple Lambl bodies
Primary Diagnosis:
1. Aortic valve tumor
Secondary Diagnoses:
1. Breast cancer status post bilateral mastectomy with abdominal trans flap
2. Hyperlipidemia
3. Depression
4. Laparoscopic bilateral salpingo-oophorectomy
5. Bilateral knee replacement
6. acute surgical blood loss anemia- expected
HPI: 57-year-old female was electively admitted on 10/19/2023 for excision of aortic valve tumor.
Hospital course: Patient underwent Robotic assisted cardiac surgery with right mini thoracotomy and right common femoral artery cutdown cannulation for resection of aortic valve tumor (fibroelastoma by pathology) and multiple Lambl bodies by
Deep Guerrier. Patient received no intraoperative blood products and was transported to the CVICU intubated, on Levophed, insulin, and Precedex patient was weaned and extubated at 1520, the day of surgery. On postoperative day #1, the A-line and
JO slick were DC'd. A TTE reported EF of 55% with no aortic insufficiency. Patient ambulated with cardiac rehab without incident and will be discharged on aspirin as antiplatelet therapy. 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
and will discuss ability to return to this activity at her follow-up appoint with Dr. Guerrier.
Home medication changes:
Discharge Plan
-
Patient Disposition: Home (Routine Discharge)
Discharge Diagnosis/Procedures: fibroelastoma resection
Condition: Good
Diet: Low Cholesterol and Low Sodium
Activity: No strenuous activity
Driving Restrictions: No driving for 2 weeks
Bathing Restrictions: OK to Shower
Other Services: Cardiac Rehab
Specialty Instructions: Weigh Daily- Call MD for wt gain/loss 3 lbs overnight/5 lbs in 1 week
Referrals:
CT Transitional Care Nurse [Outside] - in one to two days
(
The Cardiothoracic Transitional Care Nurse will call you to set up a visit in 1-2 days.)
Paty Avalos PA-C [Specified Professional Personl] - 11/30/23 10:20 am
Deep Guerrier MD [Active] - 11/09/23 12:45 pm
Francisco Dumont MD [Family Provider] - in four to six weeks (Please make an appointment in four to six weeks. )
Prescriptions:
New
acetaminophen 325 mg Tablet
650 mg PO Q4HPRN PRN (Reason: mild pain,headache,temp >101F ) Qty: 0 0RF
gabapentin 100 mg Capsule
200 mg PO TID Qty: 30 0RF
oxycodone 5 mg Tablet
5 mg PO Q6HPRN PRN (Reason: severe pain) Qty: 30 0RF
metoprolol succinate [Toprol XL] 25 mg tablet extended release 24 hr
25 mg PO DAILY Qty: 30 1RF
Continued
simvastatin 40 mg Tablet
40 mg PO DAILY
venlafaxine 37.5 mg Tablet
37.5 mg PO DAILY
Rx Instructions:
taken with the 150 Effexor
dextroamphetamine-amphetamine [Adderall] 20 mg Tablet
20 mg PO BID
aspirin 81 mg Tablet
81 mg PO DAILY
venlafaxine 150 mg Tablet Extended Release 24hr
150 mg PO DAILY
Rx Instructions:
taken with the 37.5 effexor
Discharge Orders:
Discharge Patient (As Directed); Ordered 10/21/23
Ordered By: Lauren Smith
Care Plan Goals
Care Plan Goals:
Problem: Readiness for enhanced knowledge related to diagnosis and treatment plan
Goal: Understand your diagnosis and treatment plan needs, including medications if applicable.
Instructions: Know your diagnosis, underlying causes and treatment plan options, including medications if applicable. Consult with your health care team to learn about your diagnosis and treatment plan, including medications if applicable.
Discharge Date and Time
Print Language: GHANAIAN
--- NOTE | 2023-10-20 09:53 | W.PN.ANS.POP ---
Anesthesia Post Operative
- Anesthesia Post Op Note
Vital Signs Stable-See Nursing Note: Yes
Airway Patent: Yes
Adequate Pain Control: Yes
Change in Mental Status: No
Current Postoperative Nausea & Vomiting: No
Anesthesia Complications: No
General Anesthetic Recall: No
Unplanned Admission: No
Post Op Hydration Adequate: Yes
[2023-10-20] MEDS: NSS IV (12:15)
--- NOTE | 2023-10-20 12:25 | PTCARENOTE ---
Mediastinal chest tube removed per MD order. Pt tolerated w/o issue. RT IJ cordis then removed, manual pressure applied. Hemostasis achieve w/o issue. Assisted oob to bathroom to void. VSS assessment otherwise unchanged from prior.
[2023-10-20] MEDS: FERRLECIT 110 MG IV (14:06)
--- NOTE | 2023-10-20 16:32 | PTCARENOTE ---
Ambulated in room with daughter. Denies pain, VSS. Assessment unchanged from prior.
--- NOTE | 2023-10-20 20:20 | PTCARENOTE ---
Assumed care of patient at 1900. Patient found asleep in bed at time of assessment. Patient is AOx4, follows commands appropriately, moves all extremities. Lung sounds are diminished in the bases, patient is on RA with saO2 at 99%. Heart sounds have
a regular rate and rhythm, patient is SR on the monitor, normal palpable pulses throughout, no edema is noted. Patient has active BS reports no post op BM, patient is voiding in the bathroom. There is a R chest and R breast puncture approx with surg
adhesive SENIOR FACILITIES MANAGER. 4x4 gauze dressing over CT wound that is CDI. A R groin incision that is approx with surg adhesive DIOGO. Patient has R FA PIV available for intermittent infusion. Patient is stable at this time.
[2023-10-20] MEDS: MAGNESIUM OXIDE 500 MG PO (20:41)
[2023-10-21] VITALS (8 sets, daily range): BP systolic 88–132; BP diastolic 49–84; PULSE 77; O2SAT 100; BMI 31.3
--- NOTE | 2023-10-21 00:30 | PTCARENOTE ---
Patient reassessed. VSS. Remains NSR on the monitor.
--- NOTE | 2023-10-21 04:34 | W.PN.CT ---
Today's Communication / Plan
-
-pod #2
-no issues overnight
-current meds (ASA, Lipitor, Lopressor, Amio, Protonix, Effexor, Neurontin, Adderall, iv iron)
-encourage IS, OOB
-discharge planning
Assessment / Plan
-
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 Guerrier on 10/19/23, pod #2
-LVEF preop was normal at approximate 55% with no regional wma. Following surgery, she was slightly hyperdynamic with an EF of approximately 60 to 65% with no new regional wall motion abnormalities.
- Depression
- Bilateral mastectomies with chemotherapy and reconstruction with TRAM flaps
- Hyperlipidemia
- Anxiety
- Lap BSO
- b/l TKR
- Acute postop blood loss anemia - stable without transfusion
- Acute postop atelectasis
Subjective
Procedure
s/p Robotic assisted cardiac surgery, resection of aortic valve tumor and multiple Lambl bodies by Dr. Guerrier on 10/19/23
-
Date of Service: October 21, 2023
Objective Data
-
Lab Results
10/21/23 04:39
10/21/23 04:39
PT 16.8 Sec (11.4-14.6) H 10/19/23 12:31
INR 1.35 10/19/23 12:31
APTT 25.4 Sec (23.4-35.0) 10/19/23 12:31
Vital Signs
Vital Signs
Vital Signs
Temp Pulse Resp BP Pulse Ox
98.5 F 65 18 97/60 97
10/21/23 03:00 10/21/23 05:00 10/21/23 03:00 10/21/23 04:25 10/21/23 04:36
SaO2: 97
Physical Exam
-
General: AOx3
Cardiovascular: Regular rate & rhythm
Respiratory: Decreased Breath Sounds
Incision: Clean and Dry
Extremities: No Edema
[2023-10-21 04:46] LABS: Hematocrit 28.3 % (37.0-47.0); Hemoglobin 9.2 g/dL (12.0-16.0); Mean Corp Hgb Conc. 32.5 g/dL (33.0-37.0); Mean Corpuscular Hgb 28.9 pg (27.0-31.0); Mean Platelet Volume 11.2 fL (7.4-10.4); Platelet Count 181 10^3/uL (130-400); Red Blood Cell Count 3.18 10^6/uL (4.20-5.40); Red Cell Dist. Width 12.8 % (11.5-14.5); White Blood Cell Count 12.9 10^3/uL (4.8-10.8)
--- NOTE | 2023-10-21 05:06 | PTCARENOTE ---
Patient reassessed. VSS. Remains SR on the monitor. No c/o pain. AM labs obtained.
[2023-10-21 05:27] LABS: Blood Urea Nitrogen 20 mg/dl (7-17); Calcium 8.7 mg/dl (8.4-10.2); Carbon Dioxide 27 mmol/L (22-30); Chloride 102 mmol/L (98-107); Estimated Creatinine Clearance 104 ml/min; Glucose 117 mg/dl (70-99); Magnesium 2.6 mg/dl (1.6-2.3); Potassium 4.5 mmol/L (3.5-5.1); Sodium 130 mmol/L (135-145); eGFR > 60.00
[2023-10-21] MEDS: TYLENOL 1000 MG PO (05:50)
--- NOTE | 2023-10-21 08:08 | PTCARENOTE ---
Patient received from shift supervisor rn resting oob in chair, AAO x 3, states pain controlled at this time. NSR via cm, SaO2 @ 96% on RA. All procedural sites stable. Patient updated to plan of care for the day, in agreement. TRISTEN Sarah to bedside,
updated to status. See work list for full assessment and interventions performed.
[2023-10-21] MEDS: LOW STRENGTH ASPIRIN 81 MG PO (08:17)
[2023-10-21] MEDS: EFFEXOR 37.5 MG PO (08:18)
[2023-10-21] MEDS: EFFEXOR XR 150 MG PO (08:18)
[2023-10-21] MEDS: ADDERALL 20 MG PO (08:18)
[2023-10-21] MEDS: LIPITOR 20 MG PO (08:19)
[2023-10-21] MEDS: PACERONE 200 MG PO (08:19)
[2023-10-21] MEDS: SENOKOT-S 1 TABLET PO (08:19)
[2023-10-21] MEDS: MAGNESIUM OXIDE 500 MG PO (08:19)
[2023-10-21] MEDS: LOPRESSOR 12.5 MG PO (08:19)
[2023-10-21] MEDS: PROTONIX 40 MG PO (08:19)
[2023-10-21] MEDS: NEURONTIN 200 MG PO (08:19)
[2023-10-21] MEDS: BACTROBAN 2% OINTMENT 1 APPLIC NASAL (08:20)
[2023-10-21] MEDS: NSS IV (08:27)
--- NOTE | 2023-10-21 10:03 | CM ---
Reviewed chart. Met with Ms. Stevenson to review discharge plans. She states she is feeling well and maybe able to go home soon. She states she ambulated in the hallway, (80 feet) and did the stairs. Prior to admission she resides with her
daughter in a two story home with one step to enter. She has a full flight of steps to her to bedroom/full bathroom. She has a powder room on the first floor. Her daughter will be home to assist in her if needed. We reviewed a home visit by the
Cardiothoracic Transitional Care Nurse. She is agreeable to a home visit. She does not have a prescription plan. Medical work-up in progress. The discharge plan is to return home with her daughter and a home visit by the Cardiothoracic
Transitional Care Nurse when medically stable.
[2023-10-21] MEDS: ADDERALL PO (12:49)
--- NOTE | 2023-10-21 14:18 | PN.CDI ---
CDI
- -
CDI:
Physician Documentation Request
Admit Date: 10/19/23 05:04
Dear Doctor Chey,
Patient is s/p Robotic assisted cardiac surgery, resection of aortic valve tumor and multiple Lambl bodies.
Sodium results:
Laboratory Tests
10/17/23 10/20/23 10/21/23
08:56 03:29 04:39
Sodium 136 134 L 130 L
Could you please provide a diagnosis that supports the above lab abnormalities and additional evaluation/ monitoring:
Hyponatremia
Abnormal lab value clinically insignificant
Other
Use of terms such as suspected, likely, concern for, or probable (associated with a specific diagnosis that is being evaluated, monitored, or treated as if it exists) are acceptable and can be coded in the inpatient setting, when documented at the
time of discharge.
Thank you,
Aysha Shannon RN, BSN
CDI Specialist
tiger text
Please use your independent medical judgment in providing your response.
== END 2023-10-21 14:43 | disposition home or self-care (01) | DRG 229 ==
LOC: CVICU 05:04
PROVIDERS: Anesthesiology; Clinical Nurse Specialist Acute Care; ADMITTING PHYSICIAN Thoracic Surgery (Cardiothoracic Vascular Surgery); CONSULT PHYSICIAN Internal Medicine Critical Care Medicine; FAMILY PHYSICIAN Internal Medicine
PROC: 5A1221Z Performance of Cardiac Output, Continuous (ICD-10-PCS; 2023-10-19)
PROC: 8E0W0CZ Robotic Assisted Procedure of Trunk Region, Open Approach (ICD-10-PCS; 2023-10-19)
PROC: B24BZZ4 Ultrasonography of Heart with Aorta, Transesophageal (ICD-10-PCS; 2023-10-19)
PROC: 02BF0ZZ Excision of Aortic Valve, Open Approach (ICD-10-PCS; 2023-10-19)
DX: D15.1 Benign neoplasm of heart (principal); D62 Acute posthemorrhagic anemia; E87.1 Hypo-osmolality and hyponatremia; J98.11 Atelectasis; F41.9 Anxiety disorder, unspecified; E78.00 Pure hypercholesterolemia, unspecified; F32.A Depression, unspecified; Z79.82 Long term (current) use of aspirin; Z79.899 Other long term (current) drug therapy; Z85.3 Personal history of malignant neoplasm of breast; I45.10 Unspecified right bundle-branch block
CPT/HCPCS: 88305; 93308; 36415; 71045; 80048; 80053; 81003; 82248; 82330; 82565; 82805; 82947; 82962; 83036; 83735; 84132; 84302; 84520; 85014; 85018; 85025; 85027; 85049; 85610; 85730; 86850; 86900; 86901; 86920; 87070; 93005; 93312; 93320; 93321; 93325; 94002; J2916; P9045

== ENCOUNTER → 2024-04-23 08:34 | Outpatient (REF) | payer MEDICARE, OTHER, SELFPAY | LOC: RCS 08:34 | PROVIDERS: ATTENDING PHYSICIAN Physician Assistant Medical; FAMILY PHYSICIAN Internal Medicine | DX: D15.1 Benign neoplasm of heart (principal); I51.89 Other ill-defined heart diseases | CPT/HCPCS: 93306 ==

== ENCOUNTER → 2025-04-25 15:46 | Outpatient (REF) | payer MEDICARE, OTHER, SELFPAY | LOC: RCS 15:46 | PROVIDERS: ATTENDING PHYSICIAN Internal Medicine Cardiovascular Disease; FAMILY PHYSICIAN Internal Medicine | DX: D15.1 Benign neoplasm of heart (principal) | CPT/HCPCS: 93306 ==